=== PATIENT | male | born 1990 | race Caucasian/White ===

== ENCOUNTER 2017-06-19 02:37 | Emergency (ER) | payer MEDICAID ==
[~2017-06-19] VITALS: Ht 188 cm; Wt 93.1 kg
[~2017-06-19 02:37] MED LIST: CEPH500C5 PO; CYCL-1 PO; MOT200T PO
[2017-06-19 03:05] VITALS: BP 129/80
[2017-06-19] MEDS ORDERED: triamcinolone acetonide 40mg/ml inj IM ONE (03:30)
== END 2017-06-19 03:47 | disposition home or self-care (01) ==
LOC: ER 02:37
DX: M77.9 Enthesopathy, unspecified (principal); G89.29 Other chronic pain; F12.10 Cannabis abuse, uncomplicated
CPT/HCPCS: 29125; 96372; 99283; J3301

== ENCOUNTER 2018-05-11 01:12 | Emergency (ER) | payer MEDICAID ==
[~2018-05-11] VITALS: Ht 188 cm; Wt 70.3 kg
[2018-05-11 01:17] VITALS: BP 134/88
--- NOTE | 2018-05-11 01:24 | NUR ---
ICE PACK BETWEEN SCAPULAS PLACED ALONG WITH ICE PACK TO RIGHT CLAVICULAR AREA.
[2018-05-11] MEDS ORDERED: ACET-2615 PO (01:52)
[2018-05-11] MEDS ORDERED: LIDO700A32 TP (01:52)
[2018-05-11] MEDS ORDERED: HYDR-3965 PO (01:53)
[2018-05-11] MEDS ORDERED: CYCL-1 PO (01:55)
[2018-05-11] MEDS ORDERED: LIDOcaine 5% patch TP ONE (01:55)
[2018-05-11] MEDS ORDERED: acetaminophen 325mg tablet PO ONE (01:55)
== END 2018-05-11 02:10 | disposition home or self-care (01) ==
LOC: ER 01:13
DX: M54.6 Pain in thoracic spine (principal); G89.29 Other chronic pain; F12.90 Cannabis use, unspecified, uncomplicated; F10.10 Alcohol abuse, uncomplicated; Z91.010 Allergy to peanuts
CPT/HCPCS: 99283

== ENCOUNTER 2024-05-22 13:09 | Emergency (ER) | payer MEDICAID, OTHER ==
[~2024-05-22] VITALS: Ht 190.5 cm; Wt 99.9 kg
[~2024-05-22 13:09] MED LIST changes: +CEPH-585 PO; -CEPH500C5 PO; +LIDO700A32 TP
[2024-05-22 13:12] VITALS: BP 134/81; PULSE 73; RESP 16; O2SAT 97
[2024-05-22] MEDS ORDERED: HYDR-3686 PO (14:40)
[2024-05-22 14:57] VITALS: TEMP 98
== END 2024-05-22 14:59 | disposition home or self-care (01) ==
LOC: ER 13:10
DX: R07.89 Other chest pain (principal); F41.9 Anxiety disorder, unspecified; G89.29 Other chronic pain; M54.9 Dorsalgia, unspecified; F10.90 Alcohol use, unspecified, uncomplicated; F12.90 Cannabis use, unspecified, uncomplicated; Z98.890 Other specified postprocedural states; Z56.6 Other physical and mental strain related to work; Z91.010 Allergy to peanuts; Z79.1 Long term (current) use of non-steroidal anti-inflammatories (NSAID); Z79.899 Other long term (current) drug therapy; Y90.9 Presence of alcohol in blood, level not specified
CPT/HCPCS: 93005; 99283